=== PATIENT | female | born 1950 | race Caucasian/White ===

== ENCOUNTER 2017-05-15 21:12 | Emergency (ER) | payer MEDICARE, BC ==
[2017-05-15] MEDS ORDERED: Ondansetron INJ* 2 MG/ML VIAL IV ONE (21:34)
[2017-05-15] MEDS ORDERED: Morphine INJ* 4 MG/ML 1 ML CARPUJECT IV ONE (21:39)
[2017-05-15] MEDS ORDERED: Ketorolac INJ* 30 MG/ML 1 ML VIAL IV PUSH ONE (21:39)
--- NOTE | 2017-05-15 21:45 | ED ---
GI/ HPI - HPI Summary HPI Summary: 67F presents with right flank pain today. She states this feel similar to her kidney stones in the past. She states pain started this morning and has become more intense. She states has history of kidney stones followed by dr gaviria who has to stent and lithrotripsy here every time as stone never passes. She denies any previous abdominal surgeries. She denies any fever. She took dose of hydrocodone before coming but then vomited him again. She admits to hematuria. She admits to dysuria, frequency, or urgency. She denies any diarrhea or constipation. She denies any chest pain or SOB. she is diabetic. - History of Current Complaint Chief Complaint: EDFlankPain Time Seen by Provider: 05/15/17 21:23 Stated Complaint: RT FLANK PAIN/VOMITING Pain Intensity: 6 - Allergy/Home Medications Allergies/Adverse Reactions: Allergies Allergy/AdvReac Type Severity Reaction Status Date / Time Sulfa Drugs Allergy Rash And Verified 02/21/15 08:08 Itching, swelling in face PMH/Surg Hx/FS Hx/Imm Hx Endocrine/Hematology History: Reports: Hx Diabetes - TYPE 2, Hx Thyroid Disease - HYPOTHYROID Cardiovascular History: Denies: Hx Hypertension Respiratory History: Reports: Other Respiratory Problems/Disorders - PLEUACY- 10 YEARS AGO Denies: Hx Asthma, Hx Chronic Obstructive Pulmonary Disease (COPD) GI History: Reports: Hx Hiatal Hernia Denies: Hx Ulcer History: Reports: Hx Kidney Stones - HX OF, NONE NOW, Hx Renal Disease Musculoskeletal History: Reports: Hx Arthritis - RHEUMATOID ARTHRITIS, Hx Rheumatoid Arthritis Sensory History: Reports: Hx Contacts or Glasses - GLASSES Denies: Hx Hearing Aid Opthamlomology History: Reports: Hx Contacts or Glasses - GLASSES - Surgical History Surgery Procedure, Year, and Place: 07/18/13- KIDNEY STONE SURGERY-[facility] [place]. KIDNEY [id number] X 2. RIGHT KNEE SURGERY-2000, [facility] [place] Hx Anesthesia Reactions: No Infectious Disease History: No Infectious Disease History: Denies: Hx Hepatitis, Hx Human Immunodeficiency Virus (HIV), History Other Infectious Disease, Traveled Outside the [place] in Last 30 Days - Family History Known Family History: Positive: Hypertension - Social History Alcohol Use: Occasionally Alcohol Amount: 1 DRINK - 2-3 X PER WEEK Substance Use Type: Reports: None Smoking Status (MU): Never Smoked Tobacco Review of Systems Negative: Fever Negative: Chest Pain Negative: Shortness Of Breath Positive: Vomiting, Nausea Positive: flank pain All Other Systems Reviewed And Are Negative: Yes Physical Exam Triage Information Reviewed: Yes Vital Signs On Initial Exam: Initial Vitals Temp Pulse Resp BP Pulse Ox 97.1 F 98 20 153/79 96 05/15/17 21:13 05/15/17 21:13 05/15/17 21:13 05/15/17 21:13 05/15/17 21:13 Vital Signs Reviewed: Yes Appearance: Positive: Pain Distress Skin: Positive: Warm, Dry Head/Face: Positive: Normal Head/Face Inspection Eyes: Positive: Normal, Conjunctiva Clear Respiratory/Lung Sounds: Positive: Clear to Auscultation, Breath Sounds Present Cardiovascular: Positive: Normal, RRR Abdomen Description: Positive: Soft, CVA Tenderness (R), Other: - tenderness right side of abdomen Bowel Sounds: Positive: Present Musculoskeletal: Positive: Normal Neurological: Positive: Normal - [place] Coma Scale Coma Scale Total: 15 Diagnostics - Vital Signs Vital Signs Temp Pulse Resp BP Pulse Ox 05/15/17 21:13 97.1 F 98 20 153/79 96 - Laboratory Result Diagrams: 05/15/17 21:45 05/15/17 21:45 Lab Statement: Any lab studies that have been ordered have been reviewed, and results considered in the medical decision making process. - CT No standard instances CT Interpretation: Positive (See Comments) - IMPRESSION: 1. There is mild right- sided hydronephrosis with a punctate 1 mm calcification at the right ureterovesical junction. 2. Mild hepatomegaly similar appearance to the prior CT examination. 3. Additional chronic and degenerative changes described in the body the report. CT Interpretation Completed By: Radiologist Re-Evaluation - Re-Evaluation First Eval Re-Evaluation Time: 11:40 Change: Improved Comment: pain under control Second Eval Re-Evaluation Time: 00:40 Change: Unchanged Comment: no pain, would like to go home GIGU Course/Dx - Course Course Of Treatment: 67F presents with right flank pain today. She states this feel similar to her kidney stones in the past. She states pain started this morning and has become more intense. She states has history of kidney stones followed by dr gaviria who has to stent and lithrotripsy here every time as stone never passes. She denies any previous abdominal surgeries. She denies any fever. She took dose of hydrocodone before coming but then vomited him again. She admits to hematuria. She admits to dysuria, frequency, or urgency. She denies any diarrhea or constipation. She denies any chest pain or SOB. she is diabetic. on exam has pos CVA tenderness right and mild right sided abdominal pain. labs wbc 13. kidney function normal. u/a shows leuko and wbc. CT shows punctuate 1mm calcificiation. spoke with dr roque and he reccomend doing a urine catherization for better specium, treat with ceftriaxone and admit to hospitalist to watch for fevers. got straight cath urine and no leuko, trace wbc but still squamous cells. patient would like to go home and will return if develops any fever. discussed wtih dr arechiga and says to send patient home as urine is not showing infection with straight cath. did not give flomax as allergic to sulfa. sent home with pain medication and told if develops fever to come back. patient understand and agrees with plan. - Diagnoses Differential Diagnoses - Female: Pyelonephritis, Urinary Tract Infection, Ureteral Calculi Provider Diagnoses: Ureteral stone - Physician Notifications Discussed Care Of Patient With: dr roque Time Discussed With Above Provider: 23:05 - get straight cath urine, treat with ceftriaxone 2gm, admit to hospitalist to watch for fever Discharge - Discharge Plan Condition: Good Disposition: HOME Prescriptions: Ondansetron ODT TAB* [Zofran 4 MG Odt TAB*] 4 mg PO Q6H PRN #18 tab.odt PRN Reason: Nausea oxyCODONE/Acetamin 5/325 MG* [Percocet 5/325 TAB*] 1 tab PO Q6H PRN #18 tab MDD 4 PRN Reason: Pain Patient Education Materials: Ureteral Stones (ED) Referrals: Judi Mejia MD [Primary Care Provider] - Deion Gaviria MD [Medical Doctor] - Additional Instructions: Take ibuprofen every 6 hours and narcotic as needed every 6 hours Take Zofran every 6 hours for nausea as needed Follow up with urology, call office tomorrow for appointment Strain urine until collect stone Return to ED if unable to manage pain at home, develop fever, or any new or worsening symptoms
[2017-05-15 21:57] LABS: Hematocrit 38 % (35-47); Hemoglobin 12.9 g/dl (12.0-16.0); Mean Corpuscular HGB Conc 34 g/dl (31-36); Mean Corpuscular Hemoglobin 30 pg (27-31); Mean Corpuscular Volume 90 fL (80-97); Mean Platelet Volume 8 um3 (7.4-10.4); Red Blood Count 4.27 10^6/ul (4.0-5.4); Red Cell Distribution Width 13 % (10.5-15); White Blood Count 13.7 10^3/ul (3.5-10.8)
[2017-05-15 22:12] LABS: Albumin 4.5 g/dL (3.2-5.2); Calcium 9.3 mg/dL (8.6-10.3); EGFR African American 109.8 (>60); EGFR Non-African American 85.4 (>60); Globulin 3.7 g/dL (2-4); Potassium 3.7 mmol/L (3.5-5.0); Total Bilirubin 0.4 mg/dL (0.2-1.0); Total Protein 8.2 g/dL (6.4-8.9)
[2017-05-15 22:17] LABS: Urine Bacteria Absent (Absent); Urine Bilirubin Negative (Negative); Urine Glucose Negative (Negative); Urine Nitrite Negative (Negative)
[2017-05-15] MEDS: NS 0.9% 1000 ML* 2,000 ML IV ONE (22:28)
--- NOTE | 2017-05-15 22:36 | RAD ---
CLINICAL HISTORY: Right flank pain COMPARISON: Most recent CT of the abdomen and pelvis July 19, 2013 TECHNIQUE: Noncontrast CT examination of the abdomen and pelvis from the lung bases through the initial tuberosities. FINDINGS: VISUALIZED LUNG BASES: The visualized lung bases are grossly clear. There is no pleural effusion. ABDOMEN AND PELVIS: Evaluation of the solid organs and vasculature is limited without intravenous contrast. The liver is mildly enlarged measuring 21 cm in greatest cephalocaudal dimension. The spleen, pancreas and adrenal glands are grossly normal in appearance. The gallbladder is normal. The left kidney is normal in appearance without focal mass, calcification or signs of hydronephrosis. There is a 2 mm calcification at the lower pole of the right kidney (coronal image 63). At the right ureterovesical junction there is a punctate, proximally 1 mm, stone (axial image 147). There are no additional stones in the urinary bladder. Evaluation of the gastrointestinal tract is limited without oral contrast. The small and large bowel are not distended.The patient's normal appendix is identified in the right lower quadrant measuring 5 mm in diameter (coronal image 44 and axial image 113). There are distal colonic diverticula becoming more concentrated the rectosigmoid colon. Some have inspissated contrast in the lumen. None exhibit focal inflammatory change.. There is no gross retroperitoneal or mesenteric lymphadenopathy. The pelvic viscera is normal in appearance. The mildly calcified abdominal aorta and iliac arteries are normal in course and diameter. Degenerative changes include multilevel loss of intervertebral disc height involving the lower thoracic and lumbar spine.There are no sinister bone lesions. IMPRESSION: 1. There is mild right-sided hydronephrosis with a punctate 1 mm calcification at the right ureterovesical junction. 2. Mild hepatomegaly similar appearance to the prior CT examination. 3. Additional chronic and degenerative changes described in the body the report.
[2017-05-15] MEDS ORDERED: cefTRIAXone(*) 2 GM in NS 0.9% 100 ML* 100 ML IVPB ONE (22:55)
[2017-05-15 23:50] LABS: Urine Bacteria Absent (Absent); Urine Bilirubin Negative (Negative); Urine Glucose Negative (Negative); Urine Nitrite Negative (Negative)
[2017-05-16] MEDS ORDERED: oxyCODONE/Acetamin 5/325 MG* TAB PO ONE (00:29)
[2017-05-16] MEDS ORDERED: Ondansetron ODT TAB* 4 MG PO ONE (00:29)
[2017-05-16 02:00] VITALS: BP 139/82
== END 2017-05-16 01:59 | disposition home or self-care (01) ==
LOC: ED 21:12
DX: N20.1 Calculus of ureter (principal); R10.84 Generalized abdominal pain; E11.9 Type 2 diabetes mellitus without complications; R11.2 Nausea with vomiting, unspecified
CPT/HCPCS: 36415; 74176; 80053; 81003; 81015; 83690; 85025; 86141; 87086; 96374; 96375; 99285; A9270-GY; J0696; J1885; J2270; J2405

== ENCOUNTER 2017-12-14 12:58 | Emergency (ER) | payer MEDICARE, BC ==
[2017-12-14 13:10] VITALS: BP 148/84
--- NOTE | 2017-12-14 13:37 | UC ---
Cardiac HPI - HPI Summary HPI Summary: states yesterday she had an extensive dental procedure and she had approximately 6-7 injections of novocaine after which she was very uncomfortable all through the night feeling short of breath and chest oppression. 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 She denies palpitations, nausea, vomiting or dizziness. She has history of DM, hypothyroidism, allergic rhinitis, osteoarthritis last glucose was 264mg% in September 2017 - History of Current Complaint Chief Complaint: UCChestPain Stated Complaint: SHORTNESS OF BREATH Time Seen by Provider: 12/14/17 13:20 Hx Obtained From: Patient Onset/Duration: Sudden Onset, Lasting Hours Initial Severity: Moderate Current Severity: Moderate Pain Intensity: 0 Chest Pain Location: Diffuse Character: Slow, Heaviness Aggravating Factor(s): Nothing Alleviating Factor(s): Nothing Associated Signs & Symptoms: Positive: SOB - Risk Factors Pulmonary Embolism Risk Factors: Estrogen Cardiac Risk Factors: Diabetes TAD Risk Factors: Negative AMI/ACS Risk Factors: Sedentary Lifestyle - Allergy/Home Medications Allergies/Adverse Reactions: Allergies Allergy/AdvReac Type Severity Reaction Status Date / Time Sulfa (Sulfonamide Allergy Rash Verified 12/14/17 13:11 Antibiotics) Home Medications: Home Medications Hydrocodone/Acetaminophen [[place] 10-325 Tablet] 1 each PO Q3H PRN 12/14/17 [ History Confirmed 12/14/17] Oxycodone HCl/Acetaminophen [Percocet] 1 tab PO Q6H PRN 12/14/17 [History Confirmed 12/14/17] diphenhydrAMINE HCl [Benadryl Allergy 25 MG CAP] 25 mg PO BEDTIME 12/14/17 [ History Confirmed 12/14/17] PMH/Surg Hx/FS Hx/Imm Hx Endocrine History: Diabetes, Hypothyroidism - Surgical History Surgical History: Yes Surgery Procedure, Year, and Place: 07/18/13- KIDNEY STONE SURGERY-[facility] [place]. KIDNEY [id number] X 2. RIGHT KNEE SURGERY-2000, [facility] [place] - Family History Known Family History: Positive: Hypertension - Social History Alcohol Use: Occasionally Alcohol Amount: 1 DRINK - 2-3 X PER WEEK Substance Use Type: None Smoking Status (MU): Never Smoked Tobacco - Immunization History Most Recent Influenza Vaccination: 2013 Most Recent Tetanus Shot: UNKNOWN Most Recent Pneumonia Vaccination: NO Review of Systems Respiratory: Shortness Of Breath Cardiovascular: Chest Pain All Other Systems Reviewed And Are Negative: Yes Physical Exam Triage Information Reviewed: Yes Appearance: Well-Appearing, No Pain Distress, Obese Vital Signs: Initial Vital Signs Temp 98.6 F 12/14/17 13:07 Pulse 94 12/14/17 13:07 Resp 20 12/14/17 13:07 BP 148/84 12/14/17 13:07 Pulse Ox 96 12/14/17 13:07 Vital Signs Reviewed: Yes Eyes: Positive: Conjunctiva Clear ENT: Positive: Normal ENT inspection, Hearing grossly normal, Pharynx normal Neck: Positive: Supple, Nontender, No Lymphadenopathy Respiratory: Positive: Chest non-tender, Lungs clear, Normal breath sounds, No respiratory distress Cardiovascular: Positive: RRR, No Murmur, Pulses Normal, Brisk Capillary Refill Abdomen Description: Positive: Nontender, No Organomegaly, Soft Bowel Sounds: Positive: Present Musculoskeletal: Positive: Strength Intact, ROM Intact, No Edema - Assessment/Plan Course Of Treatment: No prior EKGs for comparison, current EKG shows poor progression precordial leads with possible anterior infarct, patient has several risk factors for MO, discussed with her risks and benefits of ER evaluation for chest pain, patient states she is stable enough to go by herself driven by her and refuses ambulance transportation - Clinical Impression Provider Diagnoses: CHEST PAIN with SOB Discharge - Sign-Out/Discharge Documenting (check all that apply): Discharge/Admit/Transfer - Discharge Plan Condition: Guarded Disposition: TRANS HIGHER LVL OF CARE FAC Patient Education Materials: Shortness of Breath (ED), Chest Pain (ED) Referrals: Judi Mejia MD [Primary Care Provider] - Additional Instructions: Discharged to go to ER . - Billing Disposition and Condition Condition: GUARDED Disposition: Trans Higher Lvl of Care Fac
== END 2017-12-14 13:38 | disposition short-term general hospital (02) ==
LOC: UCEAST 12:58
DX: R07.89 Other chest pain (principal); R06.02 Shortness of breath; E11.9 Type 2 diabetes mellitus without complications; E03.9 Hypothyroidism, unspecified; Z87.442 Personal history of urinary calculi; Z88.2 Allergy status to sulfonamides; Z82.49 Family history of ischemic heart disease and other diseases of the circulatory system
CPT/HCPCS: 93005; 99211; G0463

== ENCOUNTER 2017-12-14 14:01 | Emergency (ER) | payer MEDICARE, BC ==
[2017-12-14 14:27] LABS: ABS Basophils 0.1 10^3/ul (0-0.2); ABS Eosinophils 0.3 10^3/ul (0-0.6); ABS Lymphocytes 2.7 10^3/ul (1.0-4.8); ABS Monocytes 0.5 10^3/ul (0-0.8); ABS Neutrophils 6.7 10^3/ul (1.5-7.7); ABS Nucleated RBC 0 10^3/ul; Eosinophil % 2.8 % (0-6); Hematocrit 37 % (35-47); Hemoglobin 12.7 g/dl (12.0-16.0); Lymphocyte % 26.2 % (25-47); Mean Corpuscular HGB Conc 35 g/dl (31-36); Mean Corpuscular Hemoglobin 31 pg (27-31); Mean Corpuscular Volume 90 fL (80-97); Mean Platelet Volume 8.4 um3 (7.4-10.4); Nucleated Red Blood Cells % 0.1; Platelet Count 408 10^3/ul (150-450); Red Blood Count 4.06 10^6/ul (4.00-5.40); Red Cell Distribution Width 13 % (10.5-15); White Blood Count 10.2 10^3/ul (3.5-10.8)
[2017-12-14 14:39] LABS: INR 1.03 (0.77-1.02)
--- NOTE | 2017-12-14 14:42 | RAD ---
INDICATION: Short of breath COMPARISON: July 19, 2013 TECHNIQUE: An AP portable view obtained at 1431 hours is submitted. FINDINGS: Bones/Soft Tissues: There are no acute bony findings. Cardiomediastinal: The cardiomediastinal silhouette is normal. Lungs: There are no infiltrates. Pleura: There are no pleural effusions. Other: None IMPRESSION: NO ACTIVE DISEASE.
[2017-12-14 14:50] LABS: EGFR Non-African American 82.6 (>60)
[2017-12-14] MEDS ORDERED: NS 0.9% 1000 ML* 1,000 ML IV ONE (15:32)
--- NOTE | 2017-12-14 15:44 | ED ---
Shortness of Breath - HPI Summary HPI Summary: Patient is a 67-year-old female presenting from urgent care with chief complaint of shortness of breath. Patient states for the past week she has been having decreased activity due to a recent dental infection and dental work to the right side of the jaw. She states she has been more sedentary due to pain. Endorses dyspnea at rest, denies any orthopnea, denies history of COPD, asthma or anxiety. She endorses a possible reaction when she was a child to Novocain and was told not to have this in the future, and states dentist injected 6-8 vials of Novocain into the abscessed tooth 2 days ago. She did not have an immediate reaction, but instead stated throughout the overnight and today she was having increased work of breath. She denies any cardiac history and denies any chest pain. There is no pain to palpation of the left or right anterior chest wall. History of diabetes and takes Victoza and metformin. History of rheumatoid arthritis. Patient sees Dr. Koroma. She denies history of hypertension. She states this has never happened to her before. - History of Current Complaint Chief Complaint: EDChestPainROMI Time Seen by Provider: 12/14/17 14:03 Hx Obtained From: Patient Onset/Duration: Sudden Onset Timing: Constant Current Severity: Mild Dyspnea At: Rest Aggrevating Factors: Nothing Alleviating Factors: Nothing Associated Signs & Symptoms: Negative - Risk Factors Pulmonary Embolism: Negative Cardiac: Negative Pseudomonas: Negative Tuberculosis: Negative - Allergy/Home Medications Allergies/Adverse Reactions: Allergies Allergy/AdvReac Type Severity Reaction Status Date / Time Sulfa (Sulfonamide Allergy Rash Verified 12/14/17 14:20 Antibiotics) Home Medications: Home Medications Adalimumab (NF) [Humira Pen (NF)] 0.8 inj SQ Q14D 12/14/17 [History Confirmed ] Amoxicillin 1 cap PO DAILY 12/14/17 [History Confirmed 12/14/17] PMH/Surg Hx/FS Hx/Imm Hx Previously Healthy: Yes Endocrine/Hematology History: Reports: Hx Diabetes - TYPE 2, Hx Thyroid Disease - HYPOTHYROID Cardiovascular History: Denies: Hx Hypertension Respiratory History: Reports: Other Respiratory Problems/Disorders - PLEUACY- 10 YEARS AGO Denies: Hx Asthma, Hx Chronic Obstructive Pulmonary Disease (COPD) GI History: Reports: Hx Hiatal Hernia Denies: Hx Ulcer History: Reports: Hx Kidney Stones - HX OF, NONE NOW, Hx Renal Disease Musculoskeletal History: Reports: Hx Arthritis - RHEUMATOID ARTHRITIS, Hx Rheumatoid Arthritis Sensory History: Reports: Hx Contacts or Glasses - GLASSES Denies: Hx Hearing Aid Opthamlomology History: Reports: Hx Contacts or Glasses - GLASSES - Surgical History Surgery Procedure, Year, and Place: 07/18/13- [place]IDNEY STONE SURGERY[place] [place]. KIDNEY [id number] X 2. RIGHT KNEE SURGERY-2000, [facility] [place] Hx Anesthesia Reactions: No - Immunization History Hx Pertussis Vaccination: No Immunizations Up to Date: Unable to Obtain/Confirm Infectious Disease History: Denies: Hx Hepatitis, Hx Human Immunodeficiency Virus (HIV), History Other Infectious Disease, Traveled Outside the [place] in Last 30 Days - Family History Known Family History: Positive: Hypertension - Social History Occupation: Employed Full-time Lives: With Family Alcohol Use: Occasionally Alcohol Amount: 1 DRINK - 2-3 X PER WEEK Hx Substance Use: No Substance Use Type: Reports: None Hx Tobacco Use: No Smoking Status (MU): Never Smoked Tobacco Review of Systems Constitutional: Negative Negative: Fever, Chills, Fatigue, Skin Diaphoresis Negative: Palpitations, Chest Pain Positive: Shortness Of Breath. Negative: Cough Negative: Abdominal Pain, Vomiting, Diarrhea, Nausea Genitourinary: Negative Positive: see HPI. Negative: no symptoms reported Skin: Negative Neurological: Negative All Other Systems Reviewed And Are Negative: Yes Physical Exam Triage Information Reviewed: Yes Vital Signs On Initial Exam: Initial Vitals Temp Pulse Resp BP Pulse Ox 98.4 F 94 20 162/81 95 12/14/17 14:08 12/14/17 14:08 12/14/17 14:08 12/14/17 14:08 12/14/17 14:08 Vital Signs Reviewed: Yes Appearance: Positive: No Pain Distress, Well-Nourished Skin: Positive: Warm, Skin Color Reflects Adequate Perfusion Head/Face: Positive: Normal Head/Face Inspection Eyes: Positive: EOMI, KENN, Conjunctiva Clear Neck: Positive: Supple, Nontender, No Lymphadenopathy Respiratory/Lung Sounds: Positive: Clear to Auscultation, Breath Sounds Present Cardiovascular: Positive: RRR, Pulses are Symmetrical in both Upper and Lower Extremities Musculoskeletal: Positive: Normal, Strength/ROM Intact Neurological: Positive: Speech Normal Psychiatric: Positive: Normal, Affect/Mood Appropriate AVPU Assessment: Alert Diagnostics - Vital Signs Vital Signs Temp Pulse Resp BP Pulse Ox 12/14/17 14:10 16 12/14/17 14:08 98.4 F 96 19 162/81 96 - Laboratory Lab Results: Lab Results 12/14/17 12/14/17 12/14/17 Range/Units 14:20 14:20 14:20 WBC 10.2 (3.5-10.8) 10^3/ul RBC 4.06 (4.00-5.40) 10^6/ul Hgb 12.7 (12.0-16.0) g/dl Hct 37 (35-47) % MCV 90 (80-97) fL MCH 31 (27-31) pg MCHC 35 (31-36) g/dl RDW 13 (10.5-15) % Plt Count 408 (150-450) 10^3/ul MPV 8.4 (7.4-10.4) um3 Neut % (Auto) 65.5 (38-83) % Lymph % (Auto) 26.2 (25-47) % Mccormick % (Auto) 4.6 (0-7) % Eos % (Auto) 2.8 (0-6) % Baso % (Auto) 0.9 (0-2) % Absolute Neuts (auto) 6.7 (1.5-7.7) 10^3/ul Absolute Lymphs (auto) 2.7 (1.0-4.8) 10^3/ul Absolute Monos (auto) 0.5 (0-0.8) 10^3/ul Absolute Eos (auto) 0.3 (0-0.6) 10^3/ul Absolute Basos (auto) 0.1 (0-0.2) 10^3/ul Absolute Nucleated RBC 0 10^3/ul Nucleated RBC % 0.1 INR (Anticoag Therapy) (0.77-1.02) D-Dimer, Quantitative (Less Than 230) ng/mL Sodium 137 (135-145) mmol/L Potassium 3.7 (3.5-5.0) mmol/L Chloride 98 L (101-111) mmol/L Carbon Dioxide 29 (22-32) mmol/L Anion Gap 10 (2-11) mmol/L BUN 8 (6-24) mg/dL Creatinine 0.71 (0.51-0.95) mg/dL Est GFR ( Amer) 100.0 (>60) Est GFR (Non-Af Amer) 82.6 (>60) BUN/Creatinine Ratio 11.3 (8-20) Glucose 359 H (70-100) mg/dL Lactic Acid 3.1 H* (0.5-2.0) mmol/L Calcium 9.2 (8.6-10.3) mg/dL Total Bilirubin 0.40 (0.2-1.0) mg/dL AST 13 (13-39) U/L ALT 10 (7-52) U/L Alkaline Phosphatase 94 (34-104) U/L Troponin I Pending Total Protein 7.3 (6.4-8.9) g/dL Albumin 4.0 (3.2-5.2) g/dL Globulin 3.3 (2-4) g/dL Albumin/Globulin Ratio 1.2 (1-3) 12/14/17 Range/Units 14:20 WBC (3.5-10.8) 10^3/ul RBC (4.00-5.40) 10^6/ul Hgb (12.0-16.0) g/dl Hct (35-47) % MCV (80-97) fL MCH (27-31) pg MCHC (31-36) g/dl RDW (10.5-15) % Plt Count (150-450) 10^3/ul MPV (7.4-10.4) um3 Neut % (Auto) (38-83) % Lymph % (Auto) (25-47) % Mccormick % (Auto) (0-7) % Eos % (Auto) (0-6) % Baso % (Auto) (0-2) % Absolute Neuts (auto) (1.5-7.7) 10^3/ul Absolute Lymphs (auto) (1.0-4.8) 10^3/ul Absolute Monos (auto) (0-0.8) 10^3/ul Absolute Eos (auto) (0-0.6) 10^3/ul Absolute Basos (auto) (0-0.2) 10^3/ul Absolute Nucleated RBC 10^3/ul Nucleated RBC % INR (Anticoag Therapy) 1.03 H (0.77-1.02) D-Dimer, Quantitative 286 H (Less Than 230) ng/mL Sodium (135-145) mmol/L Potassium (3.5-5.0) mmol/L Chloride (101-111) mmol/L Carbon Dioxide (22-32) mmol/L Anion Gap (2-11) mmol/L BUN (6-24) mg/dL Creatinine (0.51-0.95) mg/dL Est GFR ( Amer) (>60) Est GFR (Non-Af Amer) (>60) BUN/Creatinine Ratio (8-20) Glucose (70-100) mg/dL Lactic Acid (0.5-2.0) mmol/L Calcium (8.6-10.3) mg/dL Total Bilirubin (0.2-1.0) mg/dL AST (13-39) U/L ALT (7-52) U/L Alkaline Phosphatase (34-104) U/L Troponin I Total Protein (6.4-8.9) g/dL Albumin (3.2-5.2) g/dL Globulin (2-4) g/dL Albumin/Globulin Ratio (1-3) Result Diagrams: 12/14/17 14:20 12/14/17 14:20 Lab Statement: Any lab studies that have been ordered have been reviewed, and results considered in the medical decision making process. Course/Dx - Course Course Of Treatment: During the course of treatment, vital signs are noted to be at 141/64, 85, 16 and 96% on room air. She was sent from urgent care to further evaluate the workup shortness of breath. Chest x-ray obtained and shows no acute cardiopulmonary findings. Labs obtained and are unremarkable except for an elevated lactic acid at 3.1. This was supported with 1 L IV fluids. She states she feels only mildly dehydrated, but endorses decreased oral intake due to dental pain. PERC score 0. Negative for inez's sign bilaterally. Denies smoking history. Low risk of PE. With a very low suspicion for PE, d-dimer obtained which was 286. Patient has a history of rheumatoid arthritis and d-dimer known to be elevated in elevated rheumatoid factor labs. She remains normotensive, normal heart rate, O2 dropped from 96 to 92, but patient does not c/o worsening SOB. She denies chest pain/pressure. She appears in no acute distress. Troponin 0.01. Sinus rhythm, left axis deviation, consider anterior infarct. EKG read by Dr. Diaz as no stemi. Rate 90. Shortness of breath not worse with ambulation and likely secondary to sedentary activity over the past several days to week. Patient states she voices understanding of all labs and would like to go home. Voices understanding of return precautions. She does not meet criteria for admission as VS stable and O2 increased again prior to discharge to 94%. She will have further workup as an outpatient with PCP if symptoms persist. - Diagnoses Differential Diagnosis/HQI/PQRI: Positive: Pulmonary Embolism, Other - PNA Provider Diagnoses: Shortness of breath Discharge - Sign-Out/Discharge Documenting (check all that apply): Discharge/Admit/Transfer - Discharge Plan Condition: Stable Disposition: HOME Patient Education Materials: Dyspnea (ED) Referrals: Judi Mejia MD [Primary Care Provider] - Additional Instructions: Please follow up with your PCP regarding this shortness of breath symptoms If you develop any chest pain or worsening shortness of breath, you need to return to the ED immediately If you develop fevers, sweats or chills - return to the ED Please stay hydrated as you were dehydrated during today's visit. - Billing Disposition and Condition Condition: STABLE Disposition: Home
[2017-12-14 15:53] VITALS: BP 148/76
== END 2017-12-14 16:57 | disposition home or self-care (01) ==
LOC: ED 14:01
DX: R06.02 Shortness of breath (principal); E11.9 Type 2 diabetes mellitus without complications; E03.9 Hypothyroidism, unspecified; M06.9 Rheumatoid arthritis, unspecified; Z88.2 Allergy status to sulfonamides; Z79.899 Other long term (current) drug therapy; R07.89 Other chest pain; Z87.442 Personal history of urinary calculi; Z82.49 Family history of ischemic heart disease and other diseases of the circulatory system
CPT/HCPCS: 36415; 71045; 80053; 83605; 84484; 85025; 85379; 85610; 93005; 96360; 99283

== ENCOUNTER 2019-06-18 20:13 | Emergency (ER) | payer MEDICARE, BC ==
[2019-06-18] MEDS ORDERED: HYDROcodone/ACETAMIN 5-325 MG* 1 TAB PO ONE (20:30)
--- NOTE | 2019-06-18 20:34 | ED ---
Adult Trauma - HPI Summary HPI Summary: This patient is a 69 year old female presenting to [facility] with a chief complaint of injuries after a fall one hour ago. She states she missed the last step on a flight of stairs and tumbled and hit her right arm and right ribs against a bench. She notes mild pain in her knees as that is what she landed on, and she has had a knee replacement in the past. She has yet to put any weight on her legs but she feels they are OK. She reports a Hx of Rheumatoid arthritis and DM. She rates the pain in her right arm and chest wall 8/10 in severity. She states she took half a hydrocodone pill early this morning for her arthritis. Medications reviewed, allergies noted. - History of Current Complaint Chief Complaint: EDTraumaMultiple Stated Complaint: FALL PER EMS Time Seen by Provider: 06/18/19 20:22 Hx Obtained From: Patient Mechanism of Injury: Fall Pain Intensity: 8 Pain Scale Used: 0-10 Numeric Location: Chest, Extremities - Allergy/Home Medications Allergies/Adverse Reactions: Allergies Allergy/AdvReac Type Severity Reaction Status Date / Time Sulfa (Sulfonamide Allergy Rash Verified 12/14/17 14:20 Antibiotics) Home Medications: Home Medications Estrogens/Medroxypr 0.3(NF) [Prempro 0.3/1.5 (NF)] 1 tab PO DAILY 06/18/19 [ History Confirmed 06/18/19] Hydrocodone/Acetaminophen [[place] 7.5-325 Tablet] 1 tab PO TID PRN 06/18/19 [ History Confirmed 06/18/19] Levothyroxine TAB* [Synthroid TAB*] 125 mcg PO DAILY 06/18/19 [History Confirmed 06/18/19] Liraglutide (NF) [Victoza (NF)] 1.2 mg SUBCUT DAILY 06/18/19 [History Confirmed 06/18/19] Methotrexate TAB* 5 mg PO WEEKLY 06/18/19 [History Confirmed 06/18/19] diphenhydrAMINE HCl [Zzzquil] 50 mg PO BEDTIME 06/18/19 [History Confirmed 06/18] metFORMIN* [Glucophage 500 MG TAB *] 1,000 mg PO DAILY 06/18/19 [History Confirmed 06/18/19] PMH/Surg Hx/FS Hx/Imm Hx Endocrine/Hematology History: Reports: Hx Diabetes - TYPE 2, Hx Thyroid Disease - HYPOTHYROID Cardiovascular History: Denies: Hx Hypertension Respiratory History: Reports: Other Respiratory Problems/Disorders - PLEUACY- 10 YEARS AGO Denies: Hx Asthma, Hx Chronic Obstructive Pulmonary Disease (COPD) GI History: Reports: Hx Hiatal Hernia Denies: Hx Ulcer History: Reports: Hx Kidney Stones - HX OF, NONE NOW, Hx Renal Disease Musculoskeletal History: Reports: Hx Arthritis - RHEUMATOID ARTHRITIS, Hx Rheumatoid Arthritis Sensory History: Reports: Hx Contacts or Glasses - GLASSES Denies: Hx Hearing Aid Opthamlomology History: Reports: Hx Contacts or Glasses - GLASSES - Surgical History Surgery Procedure, Year, and Place: 07/18/13- KIDNEY ST[place] SURG[place] [place] KIDNEY [id number] X 2. RIGHT KNEE SURGERY[place] [facility] [place]x Anesthesia Reactions: No Infectious Disease History: Yes Infectious Disease History: Denies: Hx Hepatitis, Hx Human Immunodeficiency Virus (HIV), History Other Infectious Disease, Traveled Outside the [place] in Last 30 Days - Family History Known Family History: Positive: Hypertension - Social History Alcohol Use: Occasionally Alcohol Amount: 1 DRINK - 2-3 X PER WEEK Hx Substance Use: No Substance Use Type: Reports: None Hx Tobacco Use: No Smoking Status (MU): Never Smoked Tobacco Review of Systems Negative: Fever Positive: Other - RUE pain, right-sided rib pain, bilteral knee pain. All Other Systems Reviewed And Are Negative: Yes Physical Exam - Summary Physical Exam Summary: Constitutional: Well-developed, Well-nourished, Alert, Cooperative Skin: Warm, Dry HENT: Normocephalic; No Racoons eyes; No busby's sign; No abrasion; No contusion; No hemotympanum; No maxilla facial tenderness or instability; Dentition are smooth; No dental trauma; No trismus Eyes: EOM normal, PERRL Neck: Trachea is midline. No stridor; No JVD; No step off; No posterior cervical spine tenderness Cardio: Rhythm regular, rate normal Heart sounds normal; Intact distal pulses. Radial pulses are 2+ and symmetric. Pulmonary/Chest wall: Effort normal; Breath sounds normal; Equal chest rise; No flail segment; No rib tenderness; No sternal tenderness Abd: Soft, Appearance normal. No distension; No tenderness; No palpable pulsatile mass; No Cullens sign; No Yip-Turners sign Musculoskeletal: Full ROM and no tenderness at hips, ankles; No joint swelling; No vertebral body tenderness; No paraspinal tenderness; No step off or deformity of the spine; Pelvis is stable to lateral compression and rock. Tenderness along the right shoulder to the elbow. Radial pulse 2+, patient unable to move the shoulder. No chest wall tenderness. Neuro: Alert, Oriented x3, Strength 5/5 all extremities. : No blood at urethral meatus Psych: Mood and affect Normal Triage Information Reviewed: Yes Vital Signs On Initial Exam: Initial Vitals Temp Pulse Resp BP Pulse Ox 97.4 F 78 20 147/72 95 06/18/19 20:15 06/18/19 20:15 06/18/19 20:15 06/18/19 20:15 06/18/19 20:15 Vital Signs Reviewed: Yes Procedures - Sedation Patient Received Moderate/Deep Sedation with Procedure: No - Joint Reduction Right Joint Reduction Site: shoulder (R) Conscious Sedation: No Reduction Attempts: 2 Pre-Procedure NV Exam: Yes Post Joint Reduction Film: Multiple attempts, no clunk heard, is moving arm better but will Re-XR. Diagnostics - Vital Signs Vital Signs Temp Pulse Resp BP Pulse Ox 06/18/19 20:15 97.4 F 78 20 147/72 95 - Laboratory Lab Statement: Any lab studies that have been ordered have been reviewed, and results considered in the medical decision making process. - Radiology Shoulder XR Radiology Interpretation Completed By: ED Physician Summary of Radiographic Findings: Right shoulder anterior dislocation. No fractures. Pending official radiologist report. Humerus XR Radiology Interpretation Completed By: ED Physician Summary of Radiographic Findings: No fractures. Pending official radiologist report. Ribs w/ CXR Radiology Interpretation Completed By: ED Physician Summary of Radiographic Findings: No fractures. Pending official radiologist report. Elbow XR Radiology Interpretation Completed By: ED Physician Summary of Radiographic Findings: No fractures. Pending official radiologist report. Post-Reduction Right Shoulder XR Radiology Interpretation Completed By: ED Physician Summary of Radiographic Findings: Successful reduction of right shoulder dislocation. Pending official radiologist report. Adult Trauma Course/Dx - Course Course Of Treatment: Patient is here after a mechanical fall. Patient suffered a right shoulder dislocation. Patient's dislocation was successfully reduced. Patient had no other injuries on x-ray. Patient did not hit her head and did not lose consciousness. Patient was given an orthopedic surgeon for follow-up. - Diagnoses Provider Diagnoses: Anterior dislocation of right shoulder Discharge ED - Sign-Out/Discharge Documenting (check all that apply): Patient Departure - Discharge - Discharge Plan Condition: Stable Disposition: HOME Patient Education Materials: Shoulder Dislocation (ED) Referrals: Db Mazariegos MD [Medical Doctor] - Additional Instructions: Use your sling over the next couple of days. Continue your normal pain regimen. - Billing Disposition and Condition Condition: STABLE Disposition: Home - Attestation Statements Document Initiated by Jocelyn: Yes Documenting Scribe: Omar Ray Provider For Whom Jocelyn is Documenting (Include Credential): Casper Nolan MD Scribe Attestation: Omar العراقي, scribed for Casper Nolan MD on 06/19/19 at 0053. Scribe Documentation Reviewed: Yes Provider Attestation: The documentation as recorded by the Omar vargas accurately reflects the service I personally performed and the decisions made by me, Casper Nolan MD Status of Scribe Document: Viewed
[2019-06-18] MEDS ORDERED: fentaNYL* 50 MCG/ML 2 ML VIAL (100 MCG VIAL) IV SLOW PU ONE ×2 (21:05→22:16)
[2019-06-18] MEDS ORDERED: Lidocaine 1% MPF ** 5 ML VIAL INJ ONE (22:20)
[2019-06-19 00:48] VITALS: BP 150/73
--- NOTE | 2019-06-19 08:13 | ED ---
Imaging and Labs Follow Up Follow Up Type: Imaging Labs/Culture Result: Patient called at 11 AM on 06/19/19 to make aware of Hill-Sachs impaction fracture and also used Bankart lesion/glenoid fracture. 0.8 cm medial displacement Patient states she is a patient of Dr. Vann and will call today to make a follow-up appointment Patient is currently in a sling and nothing further required for treatment Imaging Result: Bankhrat lesion/hill-sachs Patient Communication/Plan: Discussed with patient Provider Diagnoses: Anterior dislocation of right shoulder
== END 2019-06-19 00:53 | disposition home or self-care (01) ==
LOC: ED 20:13
DX: S43.004A Unspecified dislocation of right shoulder joint, initial encounter (principal); S42.291A Other displaced fracture of upper end of right humerus, initial encounter for closed fracture; W10.9XXA Fall (on) (from) unspecified stairs and steps, initial encounter; Y92.9 Unspecified place or not applicable; E11.9 Type 2 diabetes mellitus without complications; E03.9 Hypothyroidism, unspecified; Z96.651 Presence of right artificial knee joint; Z79.84 Long term (current) use of oral hypoglycemic drugs; Z79.890 Hormone replacement therapy; Z79.899 Other long term (current) drug therapy; Z88.2 Allergy status to sulfonamides
CPT/HCPCS: 23650; 96374; 96376; 99284; J3010

== ENCOUNTER 2021-04-06 07:38 | Observation (INO) ==
[2021-04-06] MEDS ORDERED: Lactated Ringers 1000 ml BAG 1,000 ML IV ONE (08:16)
[2021-04-06] MEDS ORDERED: Ondansetron 4 mg VIAL 2 MG/ML 2 ml VIAL IV ONE (08:16)
[2021-04-06] MEDS ORDERED: Morphine 4 MG/ML VIAL (1 ml) IV ONE ×3 (08:18→15:29)
[2021-04-06 08:29] LABS: ABS Basophils 0.1 10^3/ul (0-0.2); ABS Eosinophils 0.1 10^3/ul (0-0.6); ABS Lymphocytes 2.4 10^3/ul (1.0-4.8); ABS Monocytes 0.9 10^3/ul (0-0.8); ABS Neutrophils 11.4 10^3/ul (1.5-7.7); Eosinophil % 0.4 %; Hematocrit 35 % (35-47); Hemoglobin 11.8 g/dL (12.0-16.0); Mean Corpuscular HGB Conc 34 g/dL (31-36); Mean Corpuscular Hemoglobin 30 pg (27-31); Mean Corpuscular Volume 89 fL (80-97); Mean Platelet Volume 7.8 fL (7.4-10.4); Platelet Count 758 10^3/uL (150-450); Red Blood Count 3.92 10^6 /uL (3.70-4.87); Red Cell Distribution Width 13 % (10-15); White Blood Count 14.8 10^3/uL (3.5-10.8)
[2021-04-06 08:45] LABS: Albumin/Globulin Ratio 0.8 (1-3); Calcium 9.5 mg/dL (8.6-10.3); Globulin 5.1 g/dL (2-4); Total Bilirubin 0.3 mg/dL (0.2-1.0); Total Protein 9.1 g/dL (6.4-8.9)
[2021-04-06 11:20] LABS: Urine Appearance Cloudy; Urine Bilirubin Negative (Negative); Urine Blood 1+ (Negative); Urine Color Yellow; Urine Glucose 3+(>=500 mg/dL) (Negative); Urine Ketones Trace (Negative); Urine Nitrite Negative (Negative); Urine Protein 1+(30 mg/dL) (Negative); Urine Specific Gravity 1.023 (1.002-1.030); Urine Urobilinogen Negative (Negative)
[2021-04-06 11:38] LABS: Urine Bacteria Absent (Absent); Urine Red Blood Cell Trace(0-2/hpf) (Absent); Urine Squamous Epithelial Cell Present (Absent); Urine White Blood Cell 1+(6-10/hpf) (Absent)
[2021-04-06] MEDS ORDERED: cefTRIAXone 1 gm/50 mL NS BAG 1 GM/50 ML BAG IV ONE (15:39)
[2021-04-06] MEDS ORDERED: Ondansetron 4 mg VIAL 2 MG/ML 2 ml VIAL IV PRN (18:08)
[2021-04-06] MEDS ORDERED: Dextrose 50% Syringe 50 ml 25 GM/50 ML SYRINGE IV PUSH PRN (18:13)
[2021-04-06 19:12] LABS: Rapid COVID-19 Molecular Undetected (Undetected)
[2021-04-06] MEDS ORDERED: diPHENhydraMINE 25 mg TAB PO SCH (21:00)
[2021-04-06] MEDS: NS 0.9% 1000 ml BAG 1,000 ML IV SCH (22:54)
[2021-04-07 06:56] LABS: ABS Basophils 0.1 10^3/ul (0-0.2); ABS Eosinophils 0.2 10^3/ul (0-0.6); ABS Lymphocytes 3.8 10^3/ul (1.0-4.8); ABS Monocytes 1.1 10^3/ul (0-0.8); ABS Neutrophils 10.1 10^3/ul (1.5-7.7); Eosinophil % 1.3 %; Hematocrit 29 % (35-47); Hemoglobin 9.8 g/dL (12.0-16.0); Lymphocyte % 24.7 %; Mean Corpuscular HGB Conc 34 g/dL (31-36); Mean Corpuscular Hemoglobin 31 pg (27-31); Mean Corpuscular Volume 89 fL (80-97); Mean Platelet Volume 7.9 fL (7.4-10.4); Platelet Count 587 10^3/uL (150-450); Red Blood Count 3.21 10^6 /uL (3.70-4.87); Red Cell Distribution Width 13 % (10-15); White Blood Count 15.3 10^3/uL (3.5-10.8)
[2021-04-07] MEDS: NS 0.9% 1000 ml BAG 1,000 ML IV SCH ×2 (07:09→12:15)
[2021-04-07 07:14] LABS: Calcium 8.5 mg/dL (8.6-10.3); Potassium 3.8 mmol/L (3.5-5.0)
[2021-04-07] MEDS ORDERED: Lactated Ringers 1000 ml BAG 1,000 ML IV ONE (07:47)
[2021-04-07] MEDS ORDERED: cefTRIAXone 1 gm/50 mL NS BAG 1 GM/50 ML BAG IVPB SCH (09:00)
[2021-04-07] MEDS ORDERED: NS 0.9% 1000 ml BAG 1,000 ML IV ONE (09:15)
[2021-04-07 15:48] VITALS: BP 111/61
== END 2021-04-07 17:45 | disposition home or self-care (01) ==
LOC: ED 07:38 → SSU 07:38
PROVIDERS: ADMIT Student in an Organized Health Care Education/Training Program; ATTEND Student in an Organized Health Care Education/Training Program

== ENCOUNTER 2022-04-25 15:19 | Observation (INO) ==
[2022-04-25] MEDS ORDERED: Ondansetron 4 mg VIAL 2 MG/ML 2 ml VIAL IV ONE ×2 (16:00→17:29)
[2022-04-25] MEDS ORDERED: Morphine 4 MG/ML VIAL (1 ml) IV ONE (16:32)
[2022-04-25] MEDS ORDERED: Lactated Ringers 1000 ml BAG 1,000 ML IV ONE ×2 (16:33→21:52)
[2022-04-25 17:33] LABS: ABS Basophils 0.1 10^3/ul (0-0.2); ABS Eosinophils 0.1 10^3/ul (0-0.6); ABS Lymphocytes 1.6 10^3/ul (1.0-4.8); ABS Monocytes 0.5 10^3/ul (0-0.8); ABS Neutrophils 10.1 10^3/ul (1.5-7.7); Eosinophil % 0.6 %; Hematocrit 37 % (35-47); Hemoglobin 12.1 g/dL (12.0-16.0); Lymphocyte % 12.7 %; Mean Corpuscular HGB Conc 33 g/dL (31-36); Mean Corpuscular Hemoglobin 30 pg (27-31); Mean Corpuscular Volume 90 fL (80-97); Mean Platelet Volume 8.4 fL (7.4-10.4); Platelet Count 497 10^3/uL (150-450); Red Blood Count 4.07 10^6 /uL (3.70-4.87); Red Cell Distribution Width 13 % (10-15); White Blood Count 12.3 10^3/uL (3.5-10.8)
[2022-04-25 18:08] LABS: Albumin 4.4 g/dL (3.2-5.2); Albumin/Globulin Ratio 1.2 (1-3); C Reactive Protein 48.03 mg/L (<8.01); Calcium 9.7 mg/dL (8.6-10.3); Globulin 3.7 g/dL (2-4); Total Bilirubin 0.5 mg/dL (0.2-1.0); Total Protein 8.1 g/dL (6.4-8.9); eGFR CKD-EPI 29.5 (>60)
[2022-04-25 18:11] LABS: Potassium 5.6 mmol/L (3.5-5.0)
[2022-04-25] MEDS ORDERED: NS 0.9% 1000 ml BAG 1,000 ML IV ONE (18:40)
[2022-04-25] MEDS ORDERED: cefTRIAXone 1 gm/50 mL D5W 1 GM/50 ML BAG IV ONE (18:40)
[2022-04-25 18:43] LABS: Urine Appearance Clear; Urine Bilirubin Negative (Negative); Urine Blood 2+ (Negative); Urine Color Straw; Urine Glucose 3+(>=500 mg/dL) (Negative); Urine Ketones 1+ (Negative); Urine Nitrite Negative (Negative); Urine Protein Negative (Negative); Urine Specific Gravity 1.022 (1.002-1.030); Urine Urobilinogen Negative (Negative)
[2022-04-25 19:09] LABS: Urine Bacteria Absent (Absent); Urine Red Blood Cell 1+(3-5/hpf) (Absent); Urine Squamous Epithelial Cell Present (Absent); Urine White Blood Cell Trace(0-5/hpf) (Absent)
[2022-04-25] MEDS ORDERED: Ondansetron 4 mg VIAL 2 MG/ML 2 ml VIAL IV PRN (20:08)
[2022-04-25] MEDS ORDERED: Dextrose 50% Syringe 50 ml 25 GM/50 ML SYRINGE IV PUSH PRN (20:37)
[2022-04-25] MEDS ORDERED: SODIUM ZIRCONIUM CYCLOSILICATE 5 GM PACKET PO SCH (21:00)
[2022-04-25] MEDS: Enoxaparin 30 MG/0.3 ML SYR SUBCUT SCH (21:24)
[2022-04-25 22:41] LABS: Calcium 8.4 mg/dL (8.6-10.3); Potassium 4.5 mmol/L (3.5-5.0); eGFR CKD-EPI 31.2 (>60)
[2022-04-26 05:55] LABS: ABS Basophils 0.1 10^3/ul (0-0.2); ABS Eosinophils 0.3 10^3/ul (0-0.6); ABS Lymphocytes 4.2 10^3/ul (1.0-4.8); ABS Monocytes 0.6 10^3/ul (0-0.8); ABS Neutrophils 6.2 10^3/ul (1.5-7.7); Hematocrit 31 % (35-47); Hemoglobin 10.1 g/dL (12.0-16.0); Lymphocyte % 36.8 %; Mean Corpuscular HGB Conc 33 g/dL (31-36); Mean Corpuscular Hemoglobin 29 pg (27-31); Mean Corpuscular Volume 89 fL (80-97); Mean Platelet Volume 7.8 fL (7.4-10.4); Platelet Count 410 10^3/uL (150-450); Red Blood Count 3.46 10^6 /uL (3.70-4.87); Red Cell Distribution Width 13 % (10-15); White Blood Count 11.5 10^3/uL (3.5-10.8)
[2022-04-26 06:13] LABS: Calcium 8.4 mg/dL (8.6-10.3); Potassium 4.1 mmol/L (3.5-5.0); eGFR CKD-EPI 34.2 (>60)
[2022-04-26] MEDS ORDERED: cefTRIAXone 2 GM ADDV.VIAL 2 GM in NS 0.9% 100 ml BAG 100 ML IV ONE (14:30)
[2022-04-26] MEDS ORDERED: cefTRIAXone 2 gm/50 mL D5W 2 GM/50 ML BAG IV ONE (14:30)
[2022-04-26] MEDS ORDERED: Iohexol 180 (CONTRAST) 10 ML SDV IV ONE (14:38)
[2022-04-26] MEDS ORDERED: Naloxone 0.4 mg VIAL 0.4 mg/ml 1 ml VIAL IV PRN (16:37)
[2022-04-26] MEDS ORDERED: Propofol 10 MG/ML 20 ML BTL ONE (17:01)
[2022-04-26] MEDS ORDERED: Phenylephrine 40 mcg/mL 10mL (400mcg) SYRINGE ONE (17:01)
[2022-04-26] MEDS ORDERED: Ondansetron 4 mg VIAL 2 MG/ML 2 ml VIAL ONE (17:01)
[2022-04-26] MEDS ORDERED: Dexamethasone IV 4 MG/ML VIAL 1 ml VIAL ONE (17:01)
[2022-04-26] MEDS ORDERED: Lidocaine 2% PF 5 ML VIAL ONE (17:01)
[2022-04-26] MEDS ORDERED: cefTRIAXone 1 gm/50 mL D5W 1 GM/50 ML BAG IV SCH (18:00)
[2022-04-26] MEDS ORDERED: HYDROmorphone 1 MG/1 ML SYRINGE ONE (18:25)
[2022-04-26] MEDS: HYDROmorphone 1 MG/1 ML SYRINGE IV PRN ×2 (18:27→18:51)
[2022-04-26] MEDS ORDERED: NS 0.9% 1,000 ML IV SCH (20:15)
[2022-04-26] MEDS: Enoxaparin 30 MG/0.3 ML SYR SUBCUT SCH (20:39)
[2022-04-26] MEDS ORDERED: NS 0.9% 1000 ml BAG 1,000 ML IV SCH (21:32)
[2022-04-27 06:32] LABS: Magnesium 1.4 mg/dL (1.9-2.7); eGFR CKD-EPI 41.5 (>60)
[2022-04-27 06:33] LABS: Potassium 5.4 mmol/L (3.5-5.0)
[2022-04-27] MEDS ORDERED: NS 0.9% 1000 ml BAG 1,000 ML IV SCH (06:58)
[2022-04-27] MEDS ORDERED: Morphine 2 MG/ML SYRINGE IV PRN ×2 (07:07→08:29)
[2022-04-27] MEDS ORDERED: HYDROcodone/ACETAMIN 5/325 mg TAB PO PRN ×2 (08:28→08:29)
[2022-04-27] MEDS ORDERED: Patiromer POWDER 8.4 GM PAK PO SCH (09:00)
[2022-04-27] MEDS ORDERED: Insulin GLARGINE 100 un/ml 10 ml VIAL SUBCUT SCH (09:00)
[2022-04-27 15:25] VITALS: BP 99/61
[2022-04-28] MEDS ORDERED: Patiromer POWDER 8.4 GM PAK PO SCH (12:00)
== END 2022-04-27 16:55 | disposition home or self-care (01) ==
LOC: ED 15:19 → EDHOLD 15:19 → SUATTDRO 20:08 → EDHOLD 23:34 → SSU 04-26 00:57
PROVIDERS: ADMIT Internal Medicine; ATTEND Internal Medicine